=== PATIENT | female | born 2000 | race Hispanic/Latino ===

== ENCOUNTER 2021-10-07 10:11 | Emergency (ER) | payer OTHER ==
[~2021-10-07] VITALS: Ht 160 cm; Wt 65.3 kg
[2021-10-07] MEDS ORDERED: CEFDINIR300 MG PO (10:39)
[2021-10-07] MEDS ORDERED: ONDANSETRON ODT4 MG PO (10:39)
[2021-10-07] MEDS ORDERED: IBUPROFEN IB200 MG PO (10:39)
[2021-10-07] MEDS ORDERED: CEFTRIAXONE 1 GM VIAL IM ONE (10:45)
[2021-10-07] MEDS ORDERED: CEFTRIAXONE 1 GM VIAL ONE (10:59)
== END 2021-10-07 11:11 | disposition home or self-care (01) ==
LOC: FSED 10:20
DX: R30.0 Dysuria (principal); N30.91 Cystitis, unspecified with hematuria
CPT/HCPCS: 81003; 81025; 99282; J0696

== ENCOUNTER 2022-10-28 13:51 | Emergency (ER) | payer OTHER ==
[~2022-10-28] VITALS: Ht 160 cm; Wt 60.3 kg
[~2022-10-28 13:51] MED LIST: CEFDINIR300 MG PO; IBUPROFEN IB200 MG PO; ONDANSETRON ODT4 MG PO
[2022-10-28] MEDS ORDERED: DIPHENHYDRAMINE HCL INJ 50 MG/ML VIAL IV ONE (14:15)
[2022-10-28] MEDS ORDERED: SODIUM CHLORIDE 0.9% 1000ML 1,000 ML IV STA (14:15)
[2022-10-28] MEDS ORDERED: FAMOTIDINE 20 MG/2 ML VIAL IV ONE ×2 (14:15→14:41)
[2022-10-28] MEDS ORDERED: METHYLPREDNISOLONE SOD SUCC 125 MG/2ML VIAL IV ONE (14:15)
[2022-10-28] MEDS ORDERED: ALBUTEROL/IPRATROPIUM 3 ML NEB NEB ONE (14:15)
[2022-10-28] MEDS ORDERED: FAMOTIDINE20 MG PO (14:30)
[2022-10-28] MEDS ORDERED: DIPHENHYDRAMINE25 M1 PO (14:30)
[2022-10-28] MEDS ORDERED: EPIPEN JR0.15 MG/01 SQ (14:30)
[2022-10-28] MEDS ORDERED: LORATADINE10 MG PO (14:30)
[2022-10-28] MEDS ORDERED: PREDNISONE50 MG PO (14:30)
[2022-10-28] MEDS ORDERED: SODIUM CHLORIDE 0.9% 1000ML 1,000 ML ONE (14:41)
[2022-10-28] MEDS ORDERED: ALBUTEROL/IPRATROPIUM 3 ML NEB ONE (14:41)
[2022-10-28] MEDS ORDERED: DIPHENHYDRAMINE HCL INJ 50 MG/ML VIAL ONE (14:41)
[2022-10-28] MEDS ORDERED: METHYLPREDNISOLONE SOD SUCC 125 MG/2ML VIAL ONE (14:41)
== END 2022-10-28 15:06 | disposition home or self-care (01) ==
LOC: FSED 13:56
DX: R06.02 Shortness of breath (principal); T78.2XXA Anaphylactic shock, unspecified, initial encounter; R21 Rash and other nonspecific skin eruption
CPT/HCPCS: 96374; 96375; 99283; J1200; J2930; J7030